=== PATIENT | male | born 1960 | race Caucasian/White ===

== ENCOUNTER 2021-11-29 04:20 | Emergency (ER) | payer OTHER ==
[2021-11-29] MEDS ORDERED: Lidocaine 1% 5 ML VIAL INJECT ONE (04:27)
[2021-11-29] MEDS ORDERED: Diphtheria,Pertussis(Acell),Tetanus Vaccine 0.5 ML Syringe IM ONE (04:27)
[2021-11-29] MEDS ORDERED: Bacitracin Oint 1 GM U/D Packet TOP ONE (04:27)
== END 2021-11-29 04:59 | disposition home or self-care (01) ==
LOC: DL.ED 04:20
DX: S01.81XA Laceration without foreign body of other part of head, initial encounter (principal); S11.81XA Laceration without foreign body of other specified part of neck, initial encounter; Z23 Encounter for immunization; W01.198A Fall on same level from slipping, tripping and stumbling with subsequent striking against other object, initial encounter; Y92.002 Bathroom of unspecified non-institutional (private) residence as the place of occurrence of the external cause
CPT/HCPCS: 12011; 90471; 90715; 99282-25